=== PATIENT | female | born 1965 | race Caucasian/White ===

== ENCOUNTER 2019-05-21 15:37 | Observation (INO) ==
[2019-05-21] MEDS ORDERED: SODIUM CHLORIDE 0.9% 1000ML 1,000 ML IV ONE ×3 (16:21→17:53)
[2019-05-21] MEDS ORDERED: KETOROLAC TROMETHAMINE 15 MG/ML VIAL IV STA (16:21)
[2019-05-21] MEDS ORDERED: ACETAMINOPHEN 500 MG TAB PO STA (16:21)
[2019-05-21 16:43] LABS: Basophils # (auto) 0.01 K/uL (0-0.2); Basophils % (auto) 0.2 %; Eosinophils # (auto) 0.01 K/uL (0-0.5); Eosinophils % (auto) 0.2 %; Hematocrit (blood only) 42.1 % (37-47); Immature Granulocytes # (auto) 0.01 K/uL (0.00-0.02); Immature Granulocytes % (auto) 0.2 %; Lymphocytes # (auto) 0.31 K/uL (1.2-3.4); Lymphocytes % (auto) 6.6 %; Mean Corpuscular Hemoglobin 33.6 pg (25-34); Mean Corpuscular Hgb Conc 35.6 g/dL (32-36); Mean Corpuscular Volume 94.4 fL (80-100); Mean Platelet Volume 10.6 fL (7.4-10.4); Monocytes # (auto) 0.67 K/uL (0.11-0.59); Monocytes % (auto) 14.2 %; Neutrophils % (auto) 78.6 %; Platelet Count 131 K/uL (130-400); RDW Coefficient of Variation 11.8 % (11.5-14.5); RDW Standard Deviation 40.4 fL (36.4-46.3); Red Blood Count 4.46 M/uL (4.2-5.4); White Blood Count 4.71 K/uL (4.8-10.8)
[2019-05-21 17:00] LABS: D Dimer < 190 ug/L FEU (0-500)
[2019-05-21 17:01] LABS: Aspartate Aminotransferase 49 U/L (15-37); BUN Creatinine Ratio 6.9 (10-20); Bilirubin Direct 0.2 mg/dl (0-0.2); Blood Urea Nitrogen 7 mg/dl (7-18); Calcium 8.9 mg/dl (8.5-10.1); Carbon Dioxide 29 mmol/L (21-32); Chloride 103 mmol/L (98-107); Creatinine Clr Calc Pharmacy 63.6 ml/min; Est GFR (African American) 79.7; Est GFR (Non-African American) 68.8; Glucose 102 mg/dl (70-99); Potassium 3.8 mmol/L (3.5-5.1); Sodium 138 mmol/L (136-145)
--- NOTE | 2019-05-21 17:02 | XRay Report ---
XR chest 1V portable HISTORY: 54 years-old Female persisdent cough, fever acute cough with fever COMPARISON: Chest radiograph 01/07/2014 TECHNIQUE: Portable AP view of the chest FINDINGS: Cardiomediastinal and hilar silhouettes are within normal limits. Hyperinflation with diaphragmatic f lattening. No pneumothorax, pleural effusion, focal airspace consolidation or overt pulmonary edema. Bones of the chest appear grossly intact. IMPRESSION: No acute process. ACT 112: Negative or not required by law. The above report was generated using voice recognition software. It may contain grammatical, syntax o r spelling errors. Electronically signed by: Reece Damon M.D. 05/21/2019 5:01 PM
[2019-05-21 17:06] LABS: Alanine Aminotransferase 45 U/L (12-78); Alkaline Phosphatase 62 U/L (45-117); Bilirubin,Total 0.7 mg/dl (0.2-1); Creatine Kinase 114 U/L (26-192); Total Protein 7.3 gm/dl (6.4-8.2); Troponin I < 0.015 ng/ml (0-0.045)
[2019-05-21 17:12] LABS: T4 Free Thyroxine 0.97 ng/dl (0.8-1.6); Thyroid Stimulating Hormone 4.98 uIu/ml (0.300-4.500)
[2019-05-21 18:17] LABS: Appearance Urine Clear (Clear); Bacteria Urine Automated Negative (Negative); Bilirubin Urine Negative (Negative); Blood Urine 1+ (Negative); Color Urine Yellow; Epithelial Cell Urine Auto 20-30 /lpf (0-5); Glucose Urine UA Negative (Negative); Ketones Urine Trace (Negative); Leukocyte Esterase Urine Negative (Negative); Nitrite Urine Negative (Negative); Protein Urine Negative (Negative); RBC Urine Automated 0-4 /hpf (0-4); Specific Gravity Urine 1.005 (1.000-1.030); Urobilinogen Urine Negative (Negative); WBC Urine Automated 0 /hpf (0-5)
[2019-05-21 18:48] LABS: Influenza A virus by PCR Neg for Influ A (Neg); Influenza B virus by PCR Neg for Influ B (Neg)
[2019-05-21] MEDS ORDERED: NITROGLYCERIN SL 0.4 MG/TAB TAB SL PRN (20:55)
[2019-05-21] MEDS ORDERED: ONDANSETRON INJ 2 MG/ML 2 ML VIAL IV PRN (20:55)
[2019-05-21] MEDS ORDERED: ACETAMINOPHEN 500 MG TAB PO PRN (20:55)
[2019-05-21] MEDS ORDERED: ACETAMINOPHEN 325 MG TAB PO PRN (20:55)
[2019-05-21] MEDS: SODIUM CHLORIDE 0.9% 1000ML 1,000 ML IV SCH (21:52)
[2019-05-21] MEDS: DOXYCYCLINE HYCLATE 100 MG CAP PO SCH (22:31)
--- NOTE | 2019-05-21 23:12 | History and Physical Report ---
DATE OF ADMISSION: 05/21/2019 CHIEF COMPLAINT: Tachycardia. HISTORY OF PRESENT ILLNESS: This is a 54-year-old female with past medical history significant for hypothyroidism, GERD, who is sent here from her PCP office because of tachycardia. The patient states since the last few days she is having cough, initially was a dry cough, now she is bringing up yellowish phlegm. Yesterday, she felt subjective fevers and she was having some abdominal discomfort and today she had a couple of episodes of diarrhea, some runny nose, not feeling well, so she went to see family doctor where she was found to have tachycardia and was sent here. Here, her EKG shows sinus tachycardia with PACs. D-dimer was negative. Electrolytes were okay. Lactate was normal. White count was 4.7. Currently resting comfortably and hemodynamically stable. Denies any chest pain. She says she has some shortness of breath even at rest, but she is saturating okay on room air. Has some headache. Denies dizziness, no blurred vision, no earaches. Has runny nose. She has sore throat earlier but that is improving. Appetite is not that great, but she is swallowing okay. No nausea, no vomiting, no abdominal pain. No blood in stools or black stools. Normal bladder movements. No burning micturition, no hematuria. No rash anywhere, no swelling in the legs. ALLERGIES: No known drug allergies. PAST MEDICAL HISTORY: As mentioned above. PAST SURGICAL HISTORY: Colonoscopy with biopsy, EGDs, vaginal hysterectomy. MEDICATIONS: Synthroid 25 mcg daily, Mucinex p.r.n., Tylenol p.r.n. FAMILY HISTORY: Significant for mother had colon cancer at the age of 46 and Gwdgcog-Hfnfa-Ddjmh disease. Father had basal cell skin cancer, diabetes, atrial fibrillation, history of melanoma. SOCIAL HISTORY: . Former smoker, quit in 1986, smoked 1/2 pack a day for 5 years. Alcohol occasional. No drug use. REVIEW OF SYMPTOMS: As per HPI. Rest of the review of systems is negative. PHYSICAL EXAMINATION: GENERAL: The patient is of moderate built, not in acute distress. VITAL SIGNS: Temperature 37.3, pulse 117, respiratory rate 18, blood pressure 133/83, oxygen 94% on room air. HEENT: No pallor, no icterus. Pupils equal, round, reactive to light. NECK: No JVD, no neck masses, no carotid bruits. CARDIOVASCULAR: S1, S2 heard. Tachycardia. No murmurs. RESPIRATORY SYSTEM: Normal AP diameter. No accessory muscle use. No wheezing, no crackles. ABDOMEN: Soft, bowel sounds present. Nontender. No distention. CENTRAL NERVOUS SYSTEM: Cranial nerves II-XII grossly intact, nonfocal. EXTREMITIES: No edema, no erythema. LABORATORY DATA: WBC 4.7, hemoglobin 15, hematocrit 42.1, platelets 131. D-dimer less than 190. Sodium 138, potassium 3.8, chloride 103, bicarbonate 29, BUN 7, creatinine 0.9, serum glucose 102, lactate 1.2, calcium 8.9, total bilirubin 0.78, direct bilirubin 0.2, AST 14, ALT 45, alkaline phosphatase 62, total creatine kinase 114. Troponin I less than 0.015. TSH 4.9, free T4 of 0.9. Urinalysis, trace blood. Influenza A and B PCR negative. Chest x-ray: No acute process. EKG: Sinus tachycardia with PACs at a rate of 127, no acute ST-T changes seen. ASSESSMENT AND PLAN: This 54-year-old female who presents with some nonspecific illness and tachycardia. 1. Nonspecific illness: Most likely viral syndrome. She has headache, some runny nose, cough who is now bringing up phlegm and has had diarrhea a couple of episodes and also leukopenia, flu was negative. We will treat her supportively with IV fluids, Tylenol p.r.n.empiric doxycycline. Monitor in the hospital. 2. Tachycardia: Probably from above. D-dimer is negative. Troponin is negative. For completeness sake, we will follow the serial enzymes and echocardiogram. On IV fluids as above. We will monitor in telemetry floor. 3. Hypothyroid: Continue Synthroid. TSH is slightly high, but free T4 is normal. Follow up with primary care physician. 4. Deep venous thrombosis prophylaxis: Sequential compression devices for now. 5. Disposition: Observe in telemetry floor. Expect discharge home and follow with family doctor. Level 1, full code. MTDD
--- NOTE | 2019-05-22 00:38 | Emergency Department Note ---
Entered by Maryann Mak acting as a scribe for Chad Holley MD ED Provider Note Name: RADHA ROWE Age: 54 Arrives Via: Walk-In Informant: Patient CC: Heart palpitations HPI: 54F arrives for evaluation of heart palpitations. The patient states that 3 days ago she began to experience a cough associated with shortness of breath, vomiting, abdominal cramping, diarrhea, rhinorrhea, congestion, and chills. The patient has had low PO and fluid intake over the last few days due to her symptoms. She explains that she has been taking Mucinex and Tylenol at home with some relief. Her cough has worsened since onset and she is now experiencing back pain. She states that she took Ibuprofen for pain this morning but it made her nauseous (now resolved). She then began experiencing heart palpitations today and saw her PCP who presented concern for her EKG and sent her to the ED. Of note, the patient did receive her flu shot this year and states that her parents have been recently sick at home during their holiday visit. The patient does not have a history of blood clots and has not had any recent surgeries or travel. She is otherwise a healthy individual. Additionally, she does admit that she is overdue for thyroid testing. The patient's last dose of Tylenol was at 6:00AM today. She denies ear pain, sore throat, leg swelling, rashes, dysuria, and recent falls or injuries. The patient offers no additional concerns at this time. ROS: See above HPI for pertinent positives & negatives. A total of 10 systems reviewed and were otherwise negative. Past Medical History:Hypothyroidism, anemia Past Surgical History:Hysterectomy Family History:No pertinent family history Social History:Non-smoker, no drug use, daily ETOH (2 glasses of wine) Home Medications:Levothyroxine Allergies:No known allergies Vitals: * BP: 145/68 * Pulse: 141 * Resp: 18 * Temp: 37 C * O2 Sat: 94 * Delivery: Room Air Physical Exam: GENERAL: Patient is significantly dehydrated appearing and in no acute distress. EYES: No scleral icterus, unremarkable pupils. ENT: Mucous membranes dry, no nasal congestion. NECK: No masses appreciated, nomeningismus, trachea is midline. RESPIRATORY: No dyspnea. Clear to auscultation and equal bilaterally. No wheeze, no rhonchi. Persistent junky cough. CARDIOVASCULAR: Tachycardic rate and rhythm.No murmurs, rubs, gallops appreciated. GASTROINTESTINAL: Abdomen soft, non-tender, no peritonitis.Bowel sounds positive.No masses appreciated. BACK: No midline tenderness, no CVA tenderness EXTREMITIES: Normal motion all extremities, no cyanosis, no edema. NEUROLOGIC: Alert and oriented, no acute motor or sensory deficits, no focal weakness, cranial nerves grossly intact. SKIN: No rash, no jaundice, no diaphoresis. ED Course: Prior Medical Record, Triage/Nursing Notes, Medications, Allergies reviewed by Me Vital Signs: reviewed and remarkable for Tachycardia Labs:Reviewed and remarkable for wnl Interventions: Saline lock, NSS Bolus 3 L IV, Toradol 30mg IV, Tylenol 1gm PO Imaging:See below EKG:Per My Interpretation: Indication Tachy: Sinus Tach 129 bpm, qtc 424. No Ectopy. Lateral ST Depressions. No previous for comparison. Reassessments/Times: * 1615: Past medical records reviewed. The patient was evaluated in room B10.. A complete history and physical exam was performed. * 1713: I checked on the patient and her HR is 110. She states that she is feeling improved after 500 mL of fluid. * 1802: The patient states that she feels better after 2 L of fluids. She got up to use the bathroom and her HR is now in the 170s. She denies any additional sx other than a mild cough at the moment. Another liter of fluids and a flu PCR was ordered. * 1900: I spoke to Dr. Harrison, [facility] Hospitalist who accepts the patient for admission. * 1920: I updated the patient on plan to admit. The patient verbally expressed understanding and agreement of the treatment plan. The patient will be evaluated for further treatment. Blood pressure:Normal.No Referral necessary Disposition:HOspitalization Differentials:Differential: NSR, SVT, PACs, PVCs, Cardiac Dysrhythmia, Endocrine Dysfunction, Electrolyte/Metabolic Abnormality, Pulmonary Embolism, Infectious, GI, amongst other pathologies Entertained. Medical Decision Making: Pleasant 54 yr old female with history of hypothyroidism and over last few days with flu like illness. She has been seen in clinic and referred here due to abnormal EKG. On arrival EKG with Tachycardia and lateral ST depressions. She is without chest pain, significant SHOB nor other acute findings. She has unremarkable labs. She was given 2 L IV NSS Bolus, and even then with ambulation HR to 170s. Another 1 L IV given and HRs remaining in 130s even with rest. Labs don't quite go with the profound dehydration that would be necessary to result in need for this type of fluid resus. Suspect that symptoms may be some cardiac irritability from viral etiology. I do not feel she is septic. She tolerated IV fluids well without respiratory issues. Impression: * Acute dehydration * Tachycardia * Influenza-like illness The scribe's documentation has been prepared under my direction and personally reviewed by me in its entirety. I confirm that the note above accurately reflects all work, treatment, procedures, and medical decision making performed by me. Chad Holley MD Impression & Plan Acute dehydration, Tachycardia, Influenza-like illness Past Med/Surg History Medical History Anemia (Inactive 01/07/14) Hypothyroidism Surgical History History of hysterectomy Social History Preferred Language: Bulgarian Beliefs That Will Affect Care: None Current Living Situation: Spouse Feels Safe at Home: Yes Safety Concerns: Feels Safe At This Time Smoking Status: Never smoker Hx Alcohol Use: Yes Alcohol type: wine Alcohol Intake Frequency: Daily Alcohol Intake Frequency Comment: 2 glasses Hx Substance Use: No Results & Data Vital Signs Vital Signs - 24 hr 05/21/19 15:57 05/21/19 16:59 05/21/19 17:55 Temperature 37 C 37.3 C Temperature Source Oral Oral Pulse Rate 141 H Pulse Rate [Apical] 115 H Respiratory Rate 18 18 Blood Pressure 145/68 H Blood Pressure [Left Arm] 133/83 Blood Pressure Mean 93 Blood Pressure Mean [Left Arm] 99 Blood Pressure Position Sitting Pulse Oximetry 94 94 Oxygen Delivery Method Room Air Room Air Sepsis Recent Fever Within 48 Hours No Sepsis Action Taken by Nursing No Action Required 05/21/19 19:08 Temperature Temperature Source Pulse Rate Pulse Rate [Apical] 117 H Respiratory Rate Blood Pressure Blood Pressure [Left Arm] Blood Pressure Mean Blood Pressure Mean [Left Arm] Blood Pressure Position Pulse Oximetry Oxygen Delivery Method Sepsis Recent Fever Within 48 Hours Sepsis Action Taken by Nursing Laboratory Data Result diagrams: 05/21/19 16:26 05/21/19 16:26 Lab Results 05/21/19 05/21/19 05/21/19 Range/Units 16:26 16:26 16:26 WBC 4.71 L (4.8-10.8) K/uL RBC 4.46 (4.2-5.4) M/uL Hgb 15.0 (12.0-16.0) g/dL Hct 42.1 (37-47) % MCV 94.4 (80-100) fL MCH 33.6 (25-34) pg MCHC 35.6 (32-36) g/dL RDW Std Deviation 40.4 (36.4-46.3) fL RDW Coeff of Annamarie 11.8 (11.5-14.5) % Plt Count 131 (130-400) K/uL MPV 10.6 H (7.4-10.4) fL Immature Gran % (Auto) 0.2 % Neut % (Auto) 78.6 % Lymph % (Auto) 6.6 % [place] % (Auto) 14.2 % Eos % (Auto) 0.2 % Baso % (Auto) 0.2 % Immature Gran # (Auto) 0.01 (0.00-0.02) K/uL Neut # (Auto) 3.70 (1.4-6.5) K/uL Lymph # (Auto) 0.31 L (1.2-3.4) K/uL [place] # (Auto) 0.67 H (0.11-0.59) K/uL Eos # (Auto) 0.01 (0-0.5) K/uL Baso # (Auto) 0.01 (0-0.2) K/uL D-Dimer < 190 (0-500) ug/L FEU Sodium 138 (136-145) mmol/L Potassium 3.8 (3.5-5.1) mmol/L Chloride 103 (98-107) mmol/L Carbon Dioxide 29 (21-32) mmol/L Anion Gap 6.0 (3-11) BUN 7 (7-18) mg/dl Creatinine 0.94 (0.6-1.2) mg/dl Est Cr Clr Drug Dosing 63.6 ml/min Est GFR ( Amer) 79.7 Est GFR (Non-Af Amer) 68.8 BUN/Creatinine Ratio 6.9 L (10-20) Glucose 102 H (70-99) mg/dl Lactate (0.4-2.0) mmol/L Calcium 8.9 (8.5-10.1) mg/dl Total Bilirubin 0.7 (0.2-1) mg/dl Direct Bilirubin 0.2 (0-0.2) mg/dl AST 49 H (15-37) U/L ALT 45 (12-78) U/L Alkaline Phosphatase 62 (45-117) U/L Total Creatine Kinase 114 (26-192) U/L Troponin I < 0.015 (0-0.045) ng/ml Total Protein 7.3 (6.4-8.2) gm/dl Albumin 4.0 (3.4-5.0) gm/dl TSH (0.300-4.500) uIu/ml Free T4 (0.8-1.6) ng/dl Urine Color Urine Appearance (Clear) Urine pH (4.5-7.5) Ur Specific Chloe (1.000-1.030) Urine Protein (Negative) Urine Glucose (UA) (Negative) Urine Ketones (Negative) Urine Blood (Negative) Urine Nitrite (Negative) Urine Bilirubin (Negative) Urine Urobilinogen (Negative) Ur Leukocyte Esterase (Negative) Urine WBC (Auto) (0-5) /hpf Urine RBC (Auto) (0-4) /hpf U Hyaline Cast (Auto) (0-5) /lpf U Epithel Cells (Auto) (0-5) /lpf Urine Bacteria (Auto) (Negative) Influenza Type A (PCR) (Neg) Influenza Type B (PCR) (Neg) 05/21/19 05/21/19 05/21/19 Range/Units 16:26 16:26 17:59 WBC (4.8-10.8) K/uL RBC (4.2-5.4) M/uL Hgb (12.0-16.0) g/dL Hct (37-47) % MCV (80-100) fL MCH (25-34) pg MCHC (32-36) g/dL RDW Std Deviation (36.4-46.3) fL RDW Coeff of Annamarie (11.5-14.5) % Plt Count (130-400) K/uL MPV (7.4-10.4) fL Immature Gran % (Auto) % Neut % (Auto) % Lymph % (Auto) % [place] % (Auto) % Eos % (Auto) % Baso % (Auto) % Immature Gran # (Auto) (0.00-0.02) K/uL Neut # (Auto) (1.4-6.5) K/uL Lymph # (Auto) (1.2-3.4) K/uL [place] # (Auto) (0.11-0.59) K/uL Eos # (Auto) (0-0.5) K/uL Baso # (Auto) (0-0.2) K/uL D-Dimer (0-500) ug/L FEU Sodium (136-145) mmol/L Potassium (3.5-5.1) mmol/L Chloride (98-107) mmol/L Carbon Dioxide (21-32) mmol/L Anion Gap (3-11) BUN (7-18) mg/dl Creatinine (0.6-1.2) mg/dl Est Cr Clr Drug Dosing ml/min Est GFR ( Amer) Est GFR (Non-Af Amer) BUN/Creatinine Ratio (10-20) Glucose (70-99) mg/dl Lactate 1.2 (0.4-2.0) mmol/L Calcium (8.5-10.1) mg/dl Total Bilirubin (0.2-1) mg/dl Direct Bilirubin (0-0.2) mg/dl AST (15-37) U/L ALT (12-78) U/L Alkaline Phosphatase (45-117) U/L Total Creatine Kinase (26-192) U/L Troponin I (0-0.045) ng/ml Total Protein (6.4-8.2) gm/dl Albumin (3.4-5.0) gm/dl TSH 4.980 H (0.300-4.500) uIu/ml Free T4 0.97 (0.8-1.6) ng/dl Urine Color Yellow Urine Appearance Clear (Clear) Urine pH 7.0 (4.5-7.5) Ur Specific Chloe 1.005 (1.000-1.030) Urine Protein Negative (Negative) Urine Glucose (UA) Negative (Negative) Urine Ketones Trace H (Negative) Urine Blood 1+ H (Negative) Urine Nitrite Negative (Negative) Urine Bilirubin Negative (Negative) Urine Urobilinogen Negative (Negative) Ur Leukocyte Esterase Negative (Negative) Urine WBC (Auto) 0 (0-5) /hpf Urine RBC (Auto) 0-4 (0-4) /hpf U Hyaline Cast (Auto) 1-5 (0-5) /lpf U Epithel Cells (Auto) 20-30 H (0-5) /lpf Urine Bacteria (Auto) Negative (Negative) Influenza Type A (PCR) (Neg) Influenza Type B (PCR) (Neg) 05/21/19 Range/Units 18:00 WBC (4.8-10.8) K/uL RBC (4.2-5.4) M/uL Hgb (12.0-16.0) g/dL Hct (37-47) % MCV (80-100) fL MCH (25-34) pg MCHC (32-36) g/dL RDW Std Deviation (36.4-46.3) fL RDW Coeff of Annamarie (11.5-14.5) % Plt Count (130-400) K/uL MPV (7.4-10.4) fL Immature Gran % (Auto) % Neut % (Auto) % Lymph % (Auto) % [place] % (Auto) % Eos % (Auto) % Baso % (Auto) % Immature Gran # (Auto) (0.00-0.02) K/uL Neut # (Auto) (1.4-6.5) K/uL Lymph # (Auto) (1.2-3.4) K/uL [place] # (Auto) (0.11-0.59) K/uL Eos # (Auto) (0-0.5) K/uL Baso # (Auto) (0-0.2) K/uL D-Dimer (0-500) ug/L FEU Sodium (136-145) mmol/L Potassium (3.5-5.1) mmol/L Chloride (98-107) mmol/L Carbon Dioxide (21-32) mmol/L Anion Gap (3-11) BUN (7-18) mg/dl Creatinine (0.6-1.2) mg/dl Est Cr Clr Drug Dosing ml/min Est GFR ( Amer) Est GFR (Non-Af Amer) BUN/Creatinine Ratio (10-20) Glucose (70-99) mg/dl Lactate (0.4-2.0) mmol/L Calcium (8.5-10.1) mg/dl Total Bilirubin (0.2-1) mg/dl Direct Bilirubin (0-0.2) mg/dl AST (15-37) U/L ALT (12-78) U/L Alkaline Phosphatase (45-117) U/L Total Creatine Kinase (26-192) U/L Troponin I (0-0.045) ng/ml Total Protein (6.4-8.2) gm/dl Albumin (3.4-5.0) gm/dl TSH (0.300-4.500) uIu/ml Free T4 (0.8-1.6) ng/dl Urine Color Urine Appearance (Clear) Urine pH (4.5-7.5) Ur Specific Chloe (1.000-1.030) Urine Protein (Negative) Urine Glucose (UA) (Negative) Urine Ketones (Negative) Urine Blood (Negative) Urine Nitrite (Negative) Urine Bilirubin (Negative) Urine Urobilinogen (Negative) Ur Leukocyte Esterase (Negative) Urine WBC (Auto) (0-5) /hpf Urine RBC (Auto) (0-4) /hpf U Hyaline Cast (Auto) (0-5) /lpf U Epithel Cells (Auto) (0-5) /lpf Urine Bacteria (Auto) (Negative) Influenza Type A (PCR) Neg for Influ A (Neg) Influenza Type B (PCR) Neg for Influ B (Neg) Administered Medications Doxycycline Hyclate (Vibramycin) 100 mg PO BID [facility]; Protocol Stop: 05/28/19 21:44 Last Admin: 05/21/19 22:31 Dose: 100 mg Documented by: [id number] Sodium Chloride (Nss 1000ml) 1,000 mls @ 125 mls/hr IV .Q8H JARED Stop: 06/20/19 20:54 Last Admin: 05/21/19 21:52 Dose: 125 mls/hr Documented by: [id number] Discontinued Medications Acetaminophen (Tylenol) 1,000 mg PO NOW STA Stop: 05/21/19 16:22 Last Admin: 05/21/19 16:53 Dose: 1,000 mg Documented by: [id number] Sodium Chloride (Nss 1000ml) 1,000 mls @ 999 mls/hr IV .Q1H1M ONE Stop: 05/21/19 17:21 Last Infusion: 05/21/19 18:08 Dose: 0 mls/hr Documented by: [id number] Admin: 05/21/19 16:54 Dose: 999 mls/hr Documented by: [id number] Sodium Chloride (Nss 1000ml) 1,000 mls @ 999 mls/hr IV .Q1H1M ONE Stop: 05/21/19 17:21 Last Infusion: 05/21/19 18:08 Dose: 0 mls/hr Documented by: [id number] Admin: 05/21/19 16:54 Dose: 999 mls/hr Documented by: [id number] Sodium Chloride (Nss 1000ml) 1,000 mls @ 999 mls/hr IV .Q1H1M ONE Stop: 05/21/19 18:53 Last Infusion: 05/21/19 19:08 Dose: 0 mls/hr Documented by: [id number] Admin: 05/21/19 18:07 Dose: 999 mls/hr Documented by: [id number] Ketorolac Tromethamine (Toradol) 15 mg IV NOW STA Stop: 05/21/19 16:22 Last Admin: 05/21/19 16:54 Dose: 15 mg Documented by: [id number] Imaging Data Radiologist's Impression: Radiology results as stated below per my review and the radiologist's interpretation: XR chest 1V portable HISTORY: 54 years-old Female persisdent cough, fever acute cough with fever COMPARISON: Chest radiograph 01/07/2014 TECHNIQUE: Portable AP view of the chest FINDINGS: Cardiomediastinal and hilar silhouettes are within normal limits. Hyperinflation with diaphragmatic flattening. No pneumothorax, pleural effusion, focal airspace consolidation or overt pulmonary edema. Bones of the chest appear grossly intact. IMPRESSION: No acute process. ACT 112: Negative or not required by law. The above report was generated using voice recognition software. It may contain grammatical, syntax or spelling errors. Electronically signed by: Reece Damon M.D. 05/21/2019 5:01 PM Discharge Plan Visit Data *Final* Discharge Date/Time: 05/21/19 20:33 Chief Complaint: Tachycardia Stated Complaint: ELEVATED HEART RATE ED Provider: Chad Holley Discharge Problem: Acute dehydration, Tachycardia, Influenza-like illness Patient Disposition: Admitted As Inpatient Condition: Good Discharge Instructions Interventions: ED Discharge Assessment Last Done: 05/21/19 20:33 The scribe's documentation has been prepared under my direction and personally reviewed by me in its entirety. I confirm that the note above accurately reflects all work, treatment, procedures, and medical decision making performed by me.
[2019-05-22 04:19] LABS: Basophils # (auto) 0.01 K/uL (0-0.2); Basophils % (auto) 0.4 %; Eosinophils # (auto) 0.05 K/uL (0-0.5); Hemoglobin 12.2 g/dL (12.0-16.0); Lymphocytes # (auto) 0.67 K/uL (1.2-3.4); Lymphocytes % (auto) 26.5 %; Mean Corpuscular Hemoglobin 32.8 pg (25-34); Mean Corpuscular Hgb Conc 33.9 g/dL (32-36); Mean Corpuscular Volume 96.8 fL (80-100); Mean Platelet Volume 10.5 fL (7.4-10.4); Monocytes # (auto) 0.52 K/uL (0.11-0.59); Monocytes % (auto) 20.6 %; Neutrophils # (auto) 1.28 K/uL (1.4-6.5); Neutrophils % (auto) 50.5 %; Platelet Count 120 K/uL (130-400); RDW Coefficient of Variation 11.9 % (11.5-14.5); RDW Standard Deviation 42.2 fL (36.4-46.3); Red Blood Count 3.72 M/uL (4.2-5.4); White Blood Count 2.53 K/uL (4.8-10.8)
[2019-05-22 04:39] LABS: BUN Creatinine Ratio 10.2 (10-20); Calcium 8.2 mg/dl (8.5-10.1); Est GFR (Non-African American) 81.1; Magnesium 1.8 mg/dl (1.8-2.4); Potassium 4.1 mmol/L (3.5-5.1)
[2019-05-22] MEDS: SODIUM CHLORIDE 0.9% 1000ML 1,000 ML IV SCH ×2 (05:58→14:08)
[2019-05-22] MEDS ORDERED: LEVOTHYROXINE SODIUM 25 MCG TABLET PO SCH (06:30)
[2019-05-22] MEDS: DOXYCYCLINE HYCLATE 100 MG CAP PO SCH (08:43)
[2019-05-22] MEDS ORDERED: PERFLUTREN LIPID MICROSPHERE (DEFINITY) IV ONE (08:46)
--- NOTE | 2019-05-22 10:39 | Hospitalist Progress Note ---
Date of Service May 22, 2019 Assessment & Plan (1) Acute bronchitis: Has been complaining of cough with urination phlegm about 4 to 5 days before the presentation Feverish feeling but no documented temperature Noted to have tachycardic at PCPs office and was sent in to ER for further ev aluation Chest x-ray negative for any pneumonia Findings suggestive of acute bronchitis, could be viral Started on doxycycline She has been feeling a lot better and like to go home this afternoon (2) Tachycardia: Complicated by fever and dehydration Nothing to suggest ACS Tachycardia has been improving (3) Influenza-like illness: Flu negative (4) Acute dehydration: Has been getting intravenous fluid Denies any symptoms of dehydration Discharge home this afternoon Subjective 05/22 The patient was seen and examined in telemetry unit She was admitted with tachycardia from the doctor's office with history of cough and yellowish phlegm a few days before the presentation Likely has bronchitis and the patient has been improving a lot since admit Denies any chest pain, shortness of breath, palpitation, no abdominal pain,nausea and/or vomiting Review of Systems Review of Systems: All systems reviewed and are unremarkable except as noted below Respiratory: + cough; no dyspnea and no dyspnea on exertion Physical Exam Physical Exam: Lying in bed comfortably Constitutional: well developed, well nourished and + ill appearing; no acute distress Eyes: PERRL, conjunctivae normal, anicteric sclerae ENMT: external ear and nose normal, oropharynx normal Neck: trachea midline, no thyromegaly Respiratory: normal respiratory effort; no respiratory distress Au scultation: lungs clear to auscultation bilaterally (Occasional rhonchi anteriorly) Cardiovascular: Rate/Rhythm: regular rate and regular rhythm Heart Sounds: + murmur Gastrointestinal (Abdomen): Inspection/Auscultation: abdomen normal to inspection and normal bowel sounds Musculoskeletal: No acute arthritis in any joints Lymphatic: no cervical or axillary lymphadenopathy Results & Data Vital Signs (Past 12 Hours) Vital Signs Temp Pulse Resp BP Pulse Ox 05/22/19 07:01 37.3 C 92 H 18 118/73 94 05/22/19 03:25 36.5 C 96 H 18 129/77 93 Laboratory Results Short CBC 05/21/19 05/22/19 Range/Units 16:26 04:03 WBC 4.71 L 2.53 L (4.8-10.8) K/uL Hgb 15.0 12.2 (12.0-16.0) g/dL Hct 42.1 36.0 L (37-47) % Plt Count 131 120 L (130-400) K/uL BMP 05/21/19 05/22/19 16:26 04:03 Sodium 138 142 Potassium 3.8 4.1 Chloride 103 112 H Carbon Dioxide 29 28 BUN 7 8 Creatinine 0.94 0.82 Glucose 102 H 102 H Calcium 8.9 8.2 L Cardiac Enzymes 05/21/19 05/21/19 05/22/19 Range/Units 16:26 22:40 04:03 Total Creatine Kinase 114 (26-192) U/L Troponin I < 0.015 < 0.015 < 0.015 (0-0.045) ng/ml Liver Function 05/21/19 Range/Units 16:26 Total Bilirubin 0.7 (0.2-1) mg/dl Direct Bilirubin 0.2 (0-0.2) mg/dl AST 49 H (15-37) U/L ALT 45 (12-78) U/L Alkaline Phosphatase 62 (45-117) U/L Albumin 4.0 (3.4-5.0) gm/dl Urine 05/21/19 Range/Units 17:59 Urine Color Yellow Urine Appearance Clear (Clear) Urine pH 7.0 (4.5-7.5) Ur Specific [place] 1.005 (1.000-1.030) Urine Protein Negative (Negative) Urine Glucose (UA) Negative (Negative) Medications Administered Current Inpatient Medications Acetaminophen (Tylenol) 650 mg PO Q4H PRN PRN Reason: Pain or Fever Stop: 06/20/19 20:54 Acetaminophen (Tylenol) 1,000 mg PO Q6H PRN PRN Reason: Fever Or Pain Stop: 06/20/19 20:54 Last Admin: 05/22/19 08:44 Dose: 1,000 mg Documented by: Doxycycline Hyclate (Vibramycin) 100 mg PO BID FOR[facility]LY [facility], 1928–1983; Protocol Stop: 05/28/19 21:44 Last Admin: 05/22/19 08:43 Dose: 100 mg Documented by: Sodium Chloride (Nss 1000ml) 1,000 mls @ 125 mls/hr IV .Q8H [facility], [facility]–1983 Stop: 06/20/19 20:54 Last Admin: 05/22/19 05:58 Dose: 125 mls/hr Documented by: Levothyroxine Sodium (Synthroid) 25 mcg PO DAILYBB JARED Stop: 06/21/19 06:29 Last Admin: 05/22/19 06:01 Dose: 25 mcg Documented by: Nitroglycerin (Nitrostat) 0.4 mg SL UD PRN PRN Reason: Chest Pain Stop: 06/20/19 20:54 Ondansetron HCl (Zofran) 4 mg IV Q6H PRN PRN Reason: Nausea Stop: 06/20/19 20:54
--- NOTE | 2019-05-23 07:59 | Discharge Summary ---
Date of Service May 23, 2019 Admission HPI Per Admitting Provider DICTATED BY: Alex Harrison MD DATE OF ADMISSION: 05/21/2019 CHIEF COMPLAINT: Tachycardia. HISTORY OF PRESENT ILLNESS: This is a 54-year-old female with past medical history significant for hypothyroidism, GERD, who is sent here from her PCP office because of tachycardia. The patient states since the last few days she is having cough, initially was a dry cough, now she is bringing up yellowish phlegm. Yesterday, she felt subjective fevers and she was having some abdominal discomfort and today she had a couple of episodes of diarrhea, some runny nose, not feeling well, so she went to see family doctor where she was found to have tachycardia and was sent here. Here, her EKG shows sinus tachycardia with PACs. D-dimer was negative. Electrolytes were okay. Lactate was normal. White count was 4.7. Currently resting comfortably and hemodynamically stable. Denies any chest pain. She says she has some shortness of breath even at rest, but she is saturating okay on room air. Has some headache. Denies dizziness, no blurred vision, no earaches. Has runny nose. She has sore throat earlier but that is improving. Appetite is not that great, but she is swallowing okay. No nausea, no vomiting, no abdominal pain. No blood in stools or black stools. Normal bladder movements. No burning micturition, no hematuria. No rash anywhere, no swelling in the legs. Admission Exam Per Admitting Provider GENERAL: The patient is of moderate built, not in acute distress. VITAL SIGNS: Temperature 37.3, pulse 117, respiratory rate 18, blood pressure 133/83, oxygen 94% on room air. HEENT: No pallor, no icterus. Pupils equal, round, reactive to light. NECK: No JVD, no neck masses, no carotid bruits. CARDIOVASCULAR: S1, S2 heard. Tachycardia. No murmurs. RESPIRATORY SYSTEM: Normal AP diameter. No accessory muscle use. No wheezing, no crackles. ABDOMEN: Soft, bowel sounds present. Nontender. No distention. CENTRAL NERVOUS SYSTEM: Cranial nerves II-XII grossly intact, nonfocal. EXTREMITIES: No edema, no erythema. Principal Diagnosis Acute bronchitis, viral syndrome, dehydration Discharge Exam Constitutional well developed, well nourished and + ill appearing; no acute distress Eyes PERRL, conjunctivae normal, anicteric sclerae ENMT external ear and nose normal, oropharynx normal Neck trachea midline, no thyromegaly Respiratory normal respiratory effort; no respiratory distress Auscultation: lungs clear to auscultation bilaterally (Occasional rhonchi anteriorly) Cardiovascular Rate/Rhythm: regular rate and regular rhythm Heart Sounds: + murmur Gastrointestinal (Abdomen) Inspection/Auscultation: abdomen normal to inspection and normal bowel sounds Lymphatic no cervical or axillary lymphadenopathy Discharge Data Allergies Allergy/AdvReac Type Severity Reaction Status Date / Time No Known Allergies Allergy Unverified 05/21/19 16:41 Consultations 05/21/19 19:35 ED Decision to Admit Stat Hospital Course (1) Acute bronchitis: Has been complaining of cough with urination phlegm about 4 to 5 days before the presentation Feverish feeling but no documented temperature Noted to have tachycardic at PCPs office and was sent in to ER for further evaluation Chest x-ray negative for any pneumonia Findings suggestive of acute bronchitis, could be viral Started on doxycycline She has been feeling a lot better and like to go home this afternoon (2) Tachycardia: Complicated by fever and dehydration Nothing to suggest ACS Tachycardia has been improving (3) Influenza-like illness: Flu negative (4) Acute dehydration: Has been getting intravenous fluid Denies any symptoms of dehydration Discharge home this afternoon Total Time Total Time Spent Total Time Spent (In Minutes): 35 minutes Total Time Includes: Examination of the Patient, Discharge Planning, Medication Reconciliation and Communication With Other Providers Discharge Plan Discharge Items Patient Disposition: Home - Self-Care Reason For Visit: TACHYCARDIA Discharge Diagnosis: Acute bronchitis, viral syndrome, dehydration Condition on Discharge: Good Activity: Resume your previous activity Non-emergency contact: Primary Care Provider Call non-emergency contact if: you have any medication questions Follow-up/Referrals: Álvaro William MD [Primary Care Provider] - 05/27/19 11:00 am Diet: Heart Healthy Addtl Attending Provider Instructions: Drink plenty of fluid Pending Studies at Discharge: No Stand-Alone Forms: My [facility], Smoking Cessation Medications and DC Order Prescriptions: New doxycycline hyclate 100 mg Capsule 100 mg PO BID Qty: 14 RF: 0 Continued acetaminophen [Tylenol Extra Strength] 500 mg Tablet 1,000 mg PO Q6H PRN (Reason: Fever Or Pain) RF: 0 levothyroxine 25 mcg Tablet 25 mcg PO DAILY RF: 0 guaifenesin [Mucinex] 600 mg Tablet Extended Release 12hr 0 mg PO UD PRN (Reason: Congestion) RF: 0 Discharge Orders: Discharge Order (Routine); Ordered 05/22/19 Ordered By: Hudson Curtis/Other Patient Handouts: Dehydration Admission Data Admit Date/Time: 05/21/19 19:36 Attending Provider: Hudson Vazquez Admit Provider: Alex Harrison Primary Care Provider: Álvaro William Other Providers: Alex Harrison Other Interventions: Discharge Summary Assessment (RN) Last Done: 05/22/19 14:17 DC Date/Time DO NOT enter until pt leaves facility: 05/22/19 14:36
== END 2019-05-22 14:36 | disposition home or self-care (01) ==
LOC: 2S 15:37 → ED 15:37 → SUATTDRO 19:36 → 2S 20:33